=== PATIENT | male | born 1940 | race Caucasian/White ===

== ENCOUNTER → 2016-08-31 | Outpatient (CLI) | payer MEDICARE, BC ==
[~2016-08-31] MED LIST: ADVAIR 2501 DISK W/D PO; ALBUTEROL17 GM INH; ALDACTONE PO; ALDACTONE25 MG PO; ALPRAZOLAM PO; ASMANEX; ASMANEX INH; ASMANEX0.135 G1 INH; ASMANEX220 MC1 INH; ASPIRIN PO; ASPIRIN81 M1 PO; BETAPACE80 MG PO; BYSTOLIC PO; BYSTOLIC20 MG PO; CALCIUM PO; CITRACAL200 M1 PO; CLARITIN10 M2 PO; COUMADIN PO; COUMADIN5 MG PO; COZAAR PO; FISH OIL 1,0001 CAP PO; FISH OIL500 MG PO; GLUCOPHAGE XR500 MG PO; GLUCOPHAGE500 MG PO; IMDUR-ER30 M1 PO; JANUVIA PO; JANUVIA50 MG; LASIX PO; LEVOTHYROXINE75 MC1 PO; LEVOXYL125 MCG; LIPITOR40 MG PO; LISINOPRIL PO; LISINOPRIL10 MG PO; LISINOPRIL20 MG PO; LORTAB 10-5001 EACH PO; LORTAB 7.5-5001 TAB PO; LOVENOX80 MG/0.8 INJ; METFORMIN PO; METOPROLOL SUCC25 MG PO; METOPROLOL TART25 MG PO; MUCINEX ALLERG180 MG PO; MULTI-VITAMIN1 TAB PO; NASONEX17 GM; NEXIUM20 MG PO; NITROSTAT0.4 MG SL; NORCO 5/325 TAB1 TAB PO; OMEPRAZOLE20 M1; OMEPRAZOLE20 M2 PO; OMEPRAZOLE40 MG PO; PACERONE PO; PACERONE100 MG PO; PANTOPRAZOLE SO40 MG PO; PHENOL-SODIUM180 M1 MM; PLAVIX PO; PLAVIX300 MG PO; PRADAXA150 MG; PRADAXA150 MG PO; PRAVACHOL PO; PRAVASTATIN SOD20 MG PO; PRAVASTATIN SOD40 MG PO; PRILOSEC PO; PRILOSEC20 MG PO; PROVENTIL17 GM; SORINE80 MG PO; SOTALOL AF80 M1 PO; SOTALOL120 MG PO; STIOLTO RESPIMAT4 GM INH; SYNTHROID PO; SYNTHROID75 MCG PO; TRIAMCINOLONE A15 G3 EXT; TRIAMTERENE25 GM; VIBRAMYCIN100 M1 PO; VITAMIN D; VITAMIN D1000 UNIT PO; WELCHOL625 M1; WELLBUTRIN XL150 M1 PO; WELLBUTRIN XL150 M2 PO; XANAX0.5 M1 PO; ZEBETA5 MG PO; ZOLOFT PO
--- NOTE | ~2016-08-31 | CT55 ---
[facility] A Service of [facility] & [facility] RADIOLOGY TEXT RESULTS PATIENT: AIYANA AGUILLON LOCATION: [facility] : 36 UNIT #: [id number] AGE: [address]: Skyler Almanza MD SEX: M ORDER DR: [id number] [place] [id number] MR#: [id number] Acc #: [id number] NAME: AIYANA AGUILLON : 1940 SEX: M STUDY DATE/TIME: 08/31/2016 8:41 UNIT: [facility] ROOM: STUDY DESCRIPTION: CT Chest W Con Attending Physician: Skyler Almanza M.D. Ordering Physician: Skyler Almanza M.D. Primary Care Physician: Tia Loya M.D. MEDICAL IMAGING REPORT This report is preliminary unless electronic signature is present. EXAM CT chest with contrast DATE 08/31/2016 HISTORY Wheezing, shortness of breath, and cough. Patient states lung nodule left side 6 months. Additional history of asthma, hypertension, diabetes, COPD, and pacemaker placement. COMPARISON CT chest 06/11/2011. AP portable chest 08/18/2016. PROCEDURE 2 mm axial images through the chest after intravenous contrast administration. Sagittal and coronal reformatted images were obtained. This CT exam was performed with one or more of the following radiation dose reduction techniques: automatic exposure control, adjustment of mA and/or kV according to patient size, and iterative reconstruction. FINDINGS Mildly prominent mediastinal and hilar lymph nodes are stable to slightly smaller compared to 06/11/2011. For example, an AP window node measuring 1.9 x 1.3 cm, previously measured 0.4 x 2.9 cm, and an azygoesophageal recess node measuring 1.4 x 1.8 cm, previously measured 1.6 x 2.6 cm. No new adenopathy is seen. Severe emphysematous changes are present with blebs in the lung apices. There is somewhat patchy alveolar disease within the inferior right upper lobe just above the minor fissure (series 7 image 80). Very faint peribronchiolar ground-glass density is also demonstrated within the right STS. [facility] A Service of [facility] RADIOLOGY TEXT RESULTS PATIENT: AIYANA AGUILLON LOCATION: [facility] : 36 UNIT #: [id number] AGE: [address]: Skyler Almanza MD SEX: M ORDER DR: middle lobe, as well. No dense consolidations are identified. Prominent blood is seen within the left lower lobe above the diaphragm. Qfci-wr-imlxdinu reticular interstitial fibrotic changes are seen in the wph-wd-qefnq lung zones, similar to prior. No definite focal left lung nodule is identified on today's examination. No left lung nodule was documented on the 2012 examination, either. No pericardial effusion or pleural effusion. Not mentioned above, mildly enlarged right hilar lymph node appears roughly stable measuring 1.7 x 1.3 cm since 2012. Heart size is within normal limits and pacemaker leads are in place. Common origin brachiocephalic and carotid arteries from the aortic arch. Mild to moderate atheromatous plaquing within the thoracic and upper abdominal aorta without flow-limiting stenosis or dissection. Small esophageal hiatal hernia. Cholecystectomy. Tiny low-density lesions within the left upper renal pole are technically too small to characterize, but are favored to represent cysts, based upon statistics. There is mild bilateral renal cortical thinning. No acute or suspicious osseous abnormalities are identified. IMPRESSION 1. Patient's history states followup of a left lung nodule. However, no definite left lung nodule is seen on this examination, and none was documented on the most recent available CT chest at this institution from 06/11/2011. There is no documentation of any more recent outside imaging studies, either. Please correlate with the patient's known appropriate clinical history. 2. Somewhat patchy alveolar opacities are demonstrated within the inferior right upper lobe and along a peribronchiolar distribution of the right middle lobe. Correlate for pneumonitis symptoms. 3. Severe emphysema and yfys-hs-rxukqmix peripheral interstitial fibrosis. 4. Mildly prominent mediastinal and right hilar lymph nodes as described above appear stable to slightly smaller than on the 2012 examination, suggesting a benign etiology. 5. Small esophageal hiatal hernia. 6. Cholecystectomy. 7. Mild bilateral renal cortical thinning with a probable tiny left renal cyst. Dictated by... STS. [facility] A Service of [facility] RADIOLOGY TEXT RESULTS PATIENT: AIYANA AGUILLON LOCATION: [facility] : 36 UNIT #: [id number] AGE: [address]: Skyler Almanza MD SEX: M ORDER DR: Gris Mcleod M.D. THIS IS AN ELECTRONICALLY VERIFIED REPORT Gris Mcleod M.D. at 08/31/2016 5:00 PM KARIE/brett TD: 08/31/2016 12:24 JOB #: [id number] MEDICAL IMAGING REPORT Page 1 of 1
[2016-08-31 08:35] LABS: POC - CREATININE 1.15 mg/dL (0.64-1.27); POC - GFR >60.0 mL/min (>60)
== END | disposition home or self-care (01) ==
LOC: SCT 08:26
PROVIDERS: Internal Medicine
DX: R06.2 Wheezing (principal); R91.1 Solitary pulmonary nodule; R93.8 Abnormal findings on diagnostic imaging of other specified body structures; J43.9 Emphysema, unspecified; J84.10 Pulmonary fibrosis, unspecified; K44.9 Diaphragmatic hernia without obstruction or gangrene; N28.89 Other specified disorders of kidney and ureter; Z90.49 Acquired absence of other specified parts of digestive tract
CPT/HCPCS: 71260; 82565; Q9967